=== PATIENT | male | born 1975 | race Caucasian/White ===

== ENCOUNTER 2024-06-01 14:58 | Emergency (ER) | payer BC, SELFPAY ==
[2024-06-01 15:13] VITALS: BP 158/94; PULSE 69; RESP 18; TEMP 36.9; O2SAT 99; BMI 19.2
--- NOTE | 2024-06-01 15:19 | CT_ITS ---
FINAL REPORT TECHNIQUE: Noncontrast exam This study was performed with techniques to keep radiation doses as low as reasonably achievable, (ALARA). Individualized dose reduction techniques using automated exposure control or adjustment of mA and/or kV according to the patient's size were employed. CLINICAL HISTORY: intermittent left sided numbness/weakness/soa COMPARISON: None FINDINGS: CT HEAD: No abnormal density is seen. Ventricles are normal. There is no hemorrhage. No mass effect is seen. Bone windows show no evidence of fracture. IMPRESSION: No acute findings. Would consider MRI follow-up if symptoms persist. Reviewed, Interpreted and Dictated by Avani Moncada MD Transcribed by Lashae Martinez Authenticated and [facility]
--- NOTE | 2024-06-01 15:19 | CT_ITS ---
FINAL REPORT TECHNIQUE: Thin section axial CT with contrast with multiplanar reconstruction. This study was performed with techniques to keep radiation doses as low as reasonably achievable, (ALARA). Individualized dose reduction techniques using automated exposure control or adjustment of mA and/or kV according to the patient''s size were employed. CLINICAL HISTORY: intermittent left sided numbness/weakness/shortness of breath COMPARISON: None FINDINGS: Pulmonary vessels enhance in normal fashion without evidence of embolism. Thoracic aorta shows no dissection or aneurysm. No pulmonary mass or infiltrate is present. There is no significant pleural effusion. There is no significant pericardial effusion. No mediastinal or hilar adenopathy is present. IMPRESSION: No evidence of pulmonary embolism Reviewed, Interpreted and Dictated by Avani Moncada MD Transcribed by Tigist Rico Authenticated and [facility]
--- NOTE | 2024-06-01 15:19 | CT_ITS ---
FINAL REPORT CLINICAL HISTORY: intermittent left sided numbness/weakness/soa COMPARISON: None FINDINGS: CT NECK ANGIO, WITHOUT AND WITH CONTRAST TECHNIQUE: Thin section axial CT with contrast with multiplanar 3D MIP reconstruction. This study was performed with techniques to keep radiation doses as low as reasonably achievable, (ALARA). Individualized dose reduction techniques using automated exposure control or adjustment of mA and/or kV according to the patient's size were employed. NASCET criteria and technique was utilized during interpretation. FINDINGS: Aortic arch: Arch shows no significant narrowing. Great vessel origins are widely patent. Right carotid: There is minimal soft plaque present at the right carotid bifurcation without significant stenosis. Left carotid: There is minimal soft plaque present at the left carotid bifurcation without significant stenosis. Vertebrals: Left vertebral artery is dominant. No significant stenosis is present. Note is made of a mild asymmetrically enlarged right lobe of the thyroid lobe compared to the left. IMPRESSION: No significant stenosis of the cervical carotid arteries Mild asymmetric enlargement of the right thyroid lobe compared with the left. This study was performed using automated techniques to achieve radiation exposure as low as reasonably Reviewed, Interpreted and Dictated by Avani Moncada MD Transcribed by Lashae Martinez Authenticated and [facility]
--- NOTE | 2024-06-01 15:19 | CT_ITS ---
FINAL REPORT CLINICAL HISTORY: intermittent left sided numbness/weakness/soa COMPARISON: None FINDINGS: CTA HEAD TECHNIQUE: Thin section axial CT with contrast with 3D MIP reconstruction This study was performed with techniques to keep radiation doses as low as reasonably achievable, (ALARA). Individualized dose reduction techniques using automated exposure control or adjustment of mA and/or kV according to the patient's size were employed. FINDINGS: No aneurysm is seen. Major intracranial vessels are patent without significant stenosis. . IMPRESSION: Unremarkable This study was performed using automated techniques to achieve radiation exposure as low as reasonably achievable Reviewed, Interpreted and Dictated by Avani Moncada MD Transcribed by Lashae Martinez Authenticated and [facility]
[2024-06-01] MEDS: LACTATED RINGERS 1000ML 1,000 ML 999 ML IV (15:28)
[2024-06-01 15:31] VITALS: BP 125/74; PULSE 58; O2SAT 99
--- NOTE | 2024-06-01 15:32 | ECG_ITS ---
APPROVED REPORT Exam: Resting ECG HR:57 bpm ECG Measurements Heart Rate 57 AXES CA 142 P 73 QRSd 91 QRS 53 QT 401 T 69 QTc 394 Conclusion SINUS BRADYCARDIA BORDERLINE ECG No STEMI Electronically signed by : CORIE BOSE, 06/03/2024 03:22:35
[2024-06-01 15:33] LABS: Alanine Aminotransferase 39 U/L (12-78); Albumin Level 4.5 g/dl (3.5-5.0); Albumin/Globulin Ratio 1.4 (1.1-1.8); Alkaline Phosphatase 90 U/L (38-126); Anion Gap 12.4 mEq/L (5-15); Aspartate Amino Transferase 36 U/L (17-59); Bilirubin,Total 1.1 mg/dl (0.2-1.3); Blood Urea Nitrogen 23 mg/dl (9-20); Carbon Dioxide 27 mmol/L (22.0-30.0); Chloride 104 mmol/L (98-107); Creatinine Clearance Estimated 105 mL/min (50-200); Estimated Glomerular Filt Rate 104 ml/min (>60); GFR (African American) 126 ML/MIN (>60); Globulin 3.2 g/dL (1.3-3.2); Glucose 151 mg/dl (74-100); Potassium 4.4 mmoL/L (3.5-5.1); Sodium 139 mmol/L (136-145); Total Protein,Serum 7.7 g/dl (6.3-8.2)
--- NOTE | 2024-06-01 15:33 | ED_ITS ---
Discharge Plan Disposition Patient Disposition: Home, Self-Care Prescriptions Prescriptions: No Action No Known Home Medications Referrals Follow up/Referrals: Mamadou Crawley DO [Staff Physician] - See instructions Provider,Referral, [Primary Care Provider] - See instructions Activity Restrictions/Add. Instructions Additional Instructions/Restrictions: No evidence of an acute cardiopulmonary or neurologic emergency noted today. I do recommend that you follow-up with your primary care doctor. Return with any significant worsening of your symptoms. Clinical Impressions Clinical Impression: Paresthesias, Dyspnea Print Language Print Language: Thai Discharge ED Provider: Nathaniel Bertrand General Adult HPI General Chief complaint: Shortness of Breath/Dyspnea Stated complaint: diff getting oxygen, left side numbness Time Seen by Provider: 06/01/24 15:12 Mode of Arrival: Ambulatory Source of Information: Patient Description of Symptoms (Recalled from ER Triage Doc. by RN): c/o numbness and tingling down left hand and foot and lips with feeling like he cant get in enough air when breathing for 9 days. PT reports that yesterday these symptoms went away just to return this morning. History of Present Illness HPI narrative: Patient is a 48-year-old male presenting today with multiple complaints. States that 9 days ago he had sudden onset of left-sided face arm and leg tingling and weakness which lasted a very short period of time about an hour and a half. He also had associated with nausea and vomiting and shortness of breath since that time. Today he is here for his shortness of breath mainly. His neurologic complaints other than some intermittent tingling in his hand has gone away. States that he feels like he just cannot get enough oxygen. However he states that he has improvement in his symptoms when he exerts himself and only feels this way when he is lying down. Has no cardio or pulmonary history in the past however he has not seen a doctor in 20 years. Related Data Home Medications ?Medication ?Instructions ?Recorded ?Confirmed No Known Home Medications 06/01/24 06/01/24 Allergies Allergy/AdvReac Type Severity Reaction Status Date / Time No Known Allergies Allergy Verified 06/01/24 15:26 [facility] Disclaimer: The information contained in this section may have been updated after the patient was seen, as this information can be updated by other users. Social History Smoking Status: Former smoker alcohol intake: never current occupational status: other Travel in the last 8 weeks: None ROS Obtained: Yes All systems reviewed & no additional complaints except as documented Physical Exam General General appearance: alert and in no apparent distress Respiratory Respiratory exam: Present normal lung sounds bilaterally and other (Oxygen saturation is 99% on room air with a good waveform); Absent respiratory distress Cardiovascular Cardiovascular exam: Present regular rate and normal rhythm Abdominal Exam Abdominal exam: Present soft; Absent distention or tenderness Neurological Exam Neurological exam: Present alert and oriented X3 Medical Decision Making Medical Records Screening: Per USPSTF and CDC recommendations, given the prevalence of disease in our region, it is our hospital?s policy to screen for HIV and viral Hepatitis for all patients aged 18 and over and those with ongoing risk factors. Syed Inquiry Pt receiving controlled substance: No Vital Signs: 06/01/24 15:13 06/01/24 15:31 Temperature 98.4 F Temperature Source Oral Pulse Rate 58 L Pulse Rate [Left Radial] 69 Respiratory Rate 18 Blood Pressure 125/74 Blood Pressure [Right Arm] 158/94 H Blood Pressure Mean [Right Arm] 115 Blood Pressure Position [Right Arm] Sitting 02 Sat by Pulse Oximetry 99 99 Oxygen Delivery Method Room Air Room Air Lab Data Lab results reviewed: Yes I reviewed the patient's lab results. Lab Results 06/01/24 15:10: WBC 7.0, RBC 5.81, Hgb 18.1 H, Hct 49.4, MCV 85.0, MCH 31.2, M CHC 36.6 H, RDW 11.8, Plt Count 192, MPV 10.1, Neut % (Auto) 67.9, Lymph % (Auto) 24.0, Riley % (Auto) 7.4, Eos % (Auto) 0.3, Baso % (Auto) 0.3, Neut # (Auto) 4.7, Lymph # (Auto) 1.7, Riley # (Auto) 0.5, Eos # (Auto) 0.0, Baso # (Auto) 0.0, D-Dimer 0.36, Sodium 139, Potassium 4.4, Chloride 104, Carbon Dioxide 27, Anion Gap 12.4, BUN 23 H, Creatinine 0.80, Estimated Creat Clear 105, Estimated GFR 104, Est GFR ( Amer) 126, Glucose 151 H, Calcium 10.0, Total Bilirubin 1.1, AST 36, ALT 39, Alkaline Phosphatase 90, Troponin I 0.02, NT-Pro-B Natriuret Pep < 20.0, Total Protein 7.7, Albumin 4.5, Globulin 3.2, Albumin/Globulin Ratio 1.4 06/01/24 15:10 06/01/24 15:10 Orders (Tests/Meds): ED MEDICATIONS Discontinued Medications Generic Name Dose Route Start Last Admin Trade Name Freq PRN Reason Stop Dose Admin Lactated Ringer's 1,000 mls @ 999 mls/hr 06/01/24 15:30 06/01/24 15:28 Lactated Ringer's 1000 Ml Bag IV 06/01/24 16:30 999 mls/hr .Q1H1M OLIMPIA Administration Iopamidol 160 ml 06/01/24 15:53 06/01/24 15:54 Iopamidol-370 (76%);100ml Bottle IV 06/01/24 15:54 160 ml ONCE ONE Administration Sodium Chloride 50 ml 06/01/24 15:53 06/01/24 15:54 0.9 % Sodium Chloride 50 Ml Vial IV 06/01/24 15:54 50 ml ONCE ONE Administration Sodium Chloride 10 ml 06/01/24 15:53 06/01/24 15:54 Sodium Chloride 0.9% 10ml Syr (Rad Only) IV 06/01/24 15:54 10 ml ONCE ONE Administration ORDERS Category Date Time Status CT angio chest PE protocol Stat Cat Scan 06/01/24 15:[address] angio head Stat Cat Scan 06/01/24 15:[address] angio neck Stat Cat Scan 06/01/24 15:[address] head/brain wo con Stat Cat Scan 06/01/24 15:19 Completed BNP [NT Pro Brain Natriuretic Pep.] Stat Lab 06/01/24 15:10 Completed CBC w/Auto Diff [Complete Blood Count Auto Diff] Stat Lab 06/01/24 15:10 Completed CMP [Comprehensive Metabolic Panel] Stat Lab 06/01/24 15:10 Completed D-Dimer Stat Lab 06/01/24 15:10 Completed Trop I [Troponin I] Stat Lab 06/01/24 15:10 Completed Troponin I Q3H Lab 06/01/24 18:30 Ordered Troponin I Q3H Lab 06/01/24 21:30 Ordered ECG Data Tracing #1: I reviewed this ECG and interpreted as documented below: Ventricular rate of 57 sinus bradycardia no acute ischemic changes noted normal axis no significant conduction abnormalities Medical Decision Narrative: 48-year-old well-appearing gentleman with normal vital signs including normal respiratory effort oxygen saturations normal lung exam normal cardiovascular exam as well. Differential includes TIA versus stroke versus aortic dissection pneumonia pulmonary embolism etc. Overall he is very well-appearing is nonspecific and atypical symptoms. Will obtain a CT scan of his head and CT angiography of his head and neck as well as a CT PE. EKG is unremarkable. I will reassess after this initial workup is complete. CT scan of the patient's head and CT angiography of the head and neck as well as CT PE were performed which I personally interpreted which show no evidence of acute pathology. Radiology reads are consistent with this as well. Serial assessments from a cardiopulmonary and neurologic standpoint are still normal. Overall patient has subjective symptoms which have not yielded definitive diagnosis either from a physical exam or from lab or radiology perspective. There remain some diagnostic uncertainty at this point I do not suspect this patient has had a TIA or stroke or cardiopulmonary emergency at this point. No definitive specialty referral warranted but I did recommend he follow-up with primary care doctor for further evaluation particular for symptoms return and he also may return to the emergency department if things worsen. Patient was understanding reassured that no emergent or life-threatening condition was going on at this moment understood return precautions and the diagnostic uncertainty was discharged in stable condition. Critical Care Critical Care Time Critical Care Time: No
[2024-06-01 15:38] LABS: D-Dimer 0.36 ug/mL (0.0-0.5)
[2024-06-01 15:42] LABS: NT Pro Brain Natriuretic Pep. < 20.0 pg/mL (0-125)
[2024-06-01 15:44] LABS: Basophils % 0.3 % (0.1-2.0); Eosinophils % 0.3 % (0.1-12.0); Hematocrit 49.4 % (42.0-52.0); Lymphocytes # 1.7 K/mm3 (0.7-4.5); Mean Corpuscular HGB Conc 36.6 g/dL (31.8-35.4); Mean Corpuscular Hemoglobin 31.2 pg (27.0-31.2); Mean Platelet Volume 10.1 fl (7.4-10.4); Monocytes # 0.5 K/mm3 (0.1-1.0); Monocytes % 7.4 % (1.7-9.3); Neutrophils # 4.7 K/mm3 (1.8-7.8); Neutrophils % 67.9 % (37.0-80.0); Platelet Count 192 K/mm3 (142-424); Red Blood Count 5.81 M/mm3 (4.60-6.20); Red Cell Distribution Width 11.8 % (11.5-17.5)
[2024-06-01 15:45] LABS: Troponin I 0.02 ng/ml (0.00-0.034)
[2024-06-01 15:50] LABS: Hemoglobin 18.1 g/dL (14.1-18.0)
[2024-06-01] MEDS: 0.9 % SODIUM CHLORIDE 50 ML VIAL IV (15:54)
[2024-06-01] MEDS: SODIUM CHLORIDE 0.9% 10ML SYR (RAD ONLY) 10 ML IV (15:54)
[2024-06-01] MEDS: IOPAMIDOL-370 (76%);100ML BOTTLE 160 ML IV (15:54)
[2024-06-01 16:53] VITALS: BP 125/74; PULSE 60; RESP 16; TEMP 36.8; O2SAT 99
== END 2024-06-01 17:08 | disposition home or self-care (01) ==
PROVIDERS: Emergency Provider Student in an Organized Health Care Education/Training Program
DX: R06.00 Dyspnea, unspecified (principal); R20.2 Paresthesia of skin; R06.02 Shortness of breath; R11.2 Nausea with vomiting, unspecified
CPT/HCPCS: 70450; 70496; 70498; 71275; 80053; 83880; 84484; 85025; 85378; 93005; 96360; 99285; J7120; Q9967

== ENCOUNTER 2024-06-14 10:33 | Outpatient (CLI) | payer BC, SELFPAY ==
[2024-06-14 13:24] LABS: Microscopic, Urine URINE MICROSCOPIC (MICROSCOPIC)
[2024-06-14 13:35] LABS: Basophils % 0.4 % (0.1-2.0); Monocytes # 0.4 K/mm3 (0.1-1.0); Monocytes % 6.7 % (1.7-9.3); Nucleated Red Blood Cells # 0 10^3/uL; Nucleated Red Blood Cells % 0 %; Red Blood Count 5.85 M/mm3 (4.60-6.20); Red Cell Distribution Width 11.7 % (11.5-17.5)
[2024-06-14 13:43] LABS: Appearance,Urine CLEAR (Clear); Bilirubin,Urine Negative (Negative); Blood, Urine Negative (Negative); Color,Urine YELLOW (Yellow); Glucose,Urine (UA) Negative (Negative); Ketones,Urine Negative (Negative); Leukocyte Esterase,Urine Negative (Negative); Nitrate,Urine Negative (Negative); PH,Urine 5.5 (5.0-8.5); Protein,Urine Negative (Negative); Specific Gravity, Urine 1.025 (1.005-1.030); Urobilinogen,Urine 0.2 EU/dl (0.2)
[2024-06-14 13:55] LABS: Eosinophils % 0.4 % (0.1-12.0); Hematocrit 49.8 % (42.0-52.0); Hemoglobin 18.2 g/dL (14.1-18.0); Lymphocytes # 1.1 K/mm3 (0.7-4.5); Lymphocytes % 20.4 % (10-50); Mean Corpuscular HGB Conc 36.5 g/dL (31.8-35.4); Mean Corpuscular Hemoglobin 31.1 pg (27.0-31.2); Mean Corpuscular Volume 85.1 fl (80-94); Mean Platelet Volume 10.7 fl (7.4-10.4); Neutrophils # 3.9 K/mm3 (1.8-7.8); Neutrophils % 71.7 % (37.0-80.0); Platelet Count 187 K/mm3 (142-424); Red Cell Distribution Width-SD 35.6 fL; White Blood Count 5.4 K/mm3 (4.8-10.8)
[2024-06-14 14:15] LABS: Alanine Aminotransferase 25 U/L (12-78); Albumin Level 4.3 g/dl (3.5-5.0); Albumin/Globulin Ratio 1.5 (1.1-1.8); Alkaline Phosphatase 87 U/L (38-126); Anion Gap 14.7 mEq/L (5-15); Aspartate Amino Transferase 27 U/L (17-59); Bilirubin,Total 1.2 mg/dl (0.2-1.3); Blood Urea Nitrogen 15 mg/dl (9-20); Calcium 9.4 mg/dl (8.4-10.2); Carbon Dioxide 28 mmol/L (22.0-30.0); Chloride 100 mmol/L (98-107); Chol/HDL Ratio 5.4 (1-3.5); Cholesterol 172 mg/dl (140-200); Estimated Glomerular Filt Rate 91 ml/min (>60); GFR (African American) 110 ML/MIN (>60); Globulin 2.9 g/dL (1.3-3.2); Glucose 234 mg/dl (74-100); HDL Cholesterol 32 mg/dl (40-60); Magnesium 2.1 mg/dl (1.6-2.3); Phosphorous 2.4 mg/dl (2.5-4.5); Potassium 4.7 mmoL/L (3.5-5.1); Sodium 138 mmol/L (136-145); Total Protein,Serum 7.2 g/dl (6.3-8.2); Triglycerides 147 mg/dl (30-150); VLDL Cholesterol 29 mg/dL (0-40)
[2024-06-14 14:23] LABS: Erythrocyte Sedimentation Rate 1 mm/hr (0-15)
[2024-06-14 14:26] LABS: C-Reactive Protein 0.6 mg/L (0-4); Direct LDL Cholesterol 108.97 mg/dL (100-129); Intact Parathyroid Hormone 52.5 pg/mL (7.5-53.5)
[2024-06-14 14:33] LABS: 25-OH Vitamin D, Total 36.3 ng/mL (30-100)
[2024-06-14 14:44] LABS: Prostate Specific Ag Screen 1.9 ng/ml (0.0-4.0); Thyroid Stimulating Hormone 1.31 uIU/mL (0.465-4.68)
[2024-06-14 14:47] LABS: Squamous Epithelial Cell,Urine Occasional #/hpf (0-5)
[2024-06-14 14:56] LABS: HIV Combo NEGATIVE (Negative)
[2024-06-14 15:03] LABS: Free T4 (Free Thyroxine) 1.35 ng/dl (0.78-2.19)
[2024-06-14 15:04] LABS: Vitamin B12 612 pg/mL (239-931)
[2024-06-14 15:10] LABS: Iron 184 ug/dL (49-181); Total Iron Binding Capacity 297 ug/dL (261-462)
[2024-06-14 15:30] LABS: Hepatitis C Ab Qual. W/ RFX NEGATIVE (Negative)
[2024-06-14 15:46] LABS: Ferritin 396 ng/ml (17.9-464)
[2024-06-14 18:19] LABS: Chlamydia trachomatis Negative (Negative); Neisseria gonorrhoeae Negative (Negative); Trichomonas vaginalis Negative (Negative)
[2024-06-14 23:40] LABS: RPR W/RFX Titers Nonreactive (Nonreactive)
[2024-06-15 08:41] LABS: Thyroid Peroxidase Antibodies 10 IU/mL (0-34)
[2024-06-15 15:11] LABS: Calcium, Ionized 5.1 mg/dL (4.5-5.6)
== END 2024-06-14 23:59 | disposition home or self-care (01) ==
LOC: LAB.DROPOF 06-15 09:09
PROVIDERS: PCP Nurse Practitioner Family; Visit Provider Nurse Practitioner Family
DX: R06.02 Shortness of breath (principal); R20.2 Paresthesia of skin; Z76.89 Persons encountering health services in other specified circumstances; Z11.59 Encounter for screening for other viral diseases; Z11.4 Encounter for screening for human immunodeficiency virus [HIV]; Z11.3 Encounter for screening for infections with a predominantly sexual mode of transmission; Z13.220 Encounter for screening for lipoid disorders; R94.6 Abnormal results of thyroid function studies; R53.83 Other fatigue; Z87.891 Personal history of nicotine dependence; H53.8 Other visual disturbances; Z83.3 Family history of diabetes mellitus; Z80.42 Family history of malignant neoplasm of prostate; R01.1 Cardiac murmur, unspecified; E11.9 Type 2 diabetes mellitus without complications; I10 Essential (primary) hypertension; G47.33 Obstructive sleep apnea (adult) (pediatric); R41.3 Other amnesia
CPT/HCPCS: 80053; 80061; 81001; 82306; 82330; 82607; 82728; 83036; 83540; 83550; 83735; 83970; 84100; 84439; 84443; 85025; 85651; 86140; 86376; 86592; 86803; 87086; 87389; 87491; 87591; 87661; G0103

== ENCOUNTER 2024-06-26 07:37 | Outpatient (CLI) | payer BC, SELFPAY ==
--- NOTE | 2024-06-26 | CA_ITS ---
APPROVED REPORT EXAM: Comprehensive 2D, Doppler, and color-flow Echocardiogram Chemist Assistant: Lima Menard CRT Ht: 6 ft 0 in Wt: 150lbs BSA: 1.88 BP: 117/79 mmHg Indications: Chest Pain, Murmur, Shortness of Breath, Dyspnea, Fatigue 2D Dimensions LA Volume 13.40 mL LA Volume Index 6.90 mL/m2 (M/F) 16-34 M-Mode Dimensions RVDd 2.20 cm (0.9-2.6) LA Diam 2.69 cm (1.9-4.0) LVDd 4.49 cm (3.5-5.7) LVDs 2.84 cm (3.5-5.7) IVSd 1.07 cm (0.6-1.1) PWd 0.96 cm (0.6-1.1) EF (Teich) 66.70% FS 36.70% EDV (Teich) 92.00 mL TAPSE 2.42 (<1.7) ESV (Teich) 30.60 mL LV Diastology E Decel Time 180 (160-240 msec) E/A Ratio 1.95 MED A' 7.80 cm/s Aortic Valve AO Peak GR. 4.10 mmHg Mitral Valve MV A Velocity 42.0 (40-130 cm/s) E/A Ratio 1.95 Pulmonary Valve PV Peak Velocity 90.0 (50-150 cm/s) Tricuspid Valve TR P. Velocity 110.00 cm/s RAP Estimate 10.00 mmHg RVSP 14.80 mmHg Left Ventricle The left ventricle is normal size. The left ventricular systolic function is normal. The left ventricular ejection fraction is within the normal range. There is increased LV wall thickness. There is normal LV segmental wall motion. The left ventricular diastolic function is normal. LVEF is 55%. Right Ventricle The right ventricle is normal size. The right ventricular systolic function is normal. Atria The left atrium size is normal. The right atrium size is normal. There is no Doppler evidence of interatrial shunt. Aortic Valve The aortic valve opens well. There is no aortic valvular stenosis. No aortic regurgitation is present. Mitral Valve The mitral valve is normal in structure. No evidence of mitral valve stenosis. Trace mitral regurgitation. Tricuspid Valve Tricuspid valve is grossly normal in structure and function. Trace tricuspid regurgitation. There is insufficient TR jet to estimate RVSP. Pulmonic Valve The pulmonary valve is normal in structure. Trace pulmonic regurgitation. Great Vessels The aortic root is normal in size. IVC is normal in size and collapses >50% with inspiration. Pericardium There is no pericardial effusion. Other Information Study Quality: Fair Conclusion Normal biventricular systolic function. No significant valvular stenosis or regurgitation. Electronically signed by : Arleth Drake MD 07/02/2024 14:58:31
[2024-06-26 08:25] VITALS: PULSE 55; PULSE 58
[2024-06-26] MEDS: ALBUTEROL 0.083% 2.5 MG/3 ML NEB IH (08:25)
--- NOTE | 2024-06-26 09:15 | US_ITS ---
FINAL REPORT CLINICAL HISTORY: abnormal thyroid exam COMPARISON: CT soft tissues of the neck 06/01/2024 FINDINGS: THYROID ULTRASOUND: The right lobe of the thyroid measures 5.3 x 1.9 x 1.6 cm in size. No focal mass or nodule is identified. The left lobe of the thyroid measures 4.9 x 1.7 x 1.6 cm in size. No focal mass or nodule is identified. The isthmus of the thyroid measures 2 mm in thickness. IMPRESSION: The right lobe of the thyroid is slightly larger than the left, however no focal nodule or mass is identified. Reviewed, Interpreted and Dictated by Angel Mike MD Transcribed by Lashae Martinez Authenticated and [facility]
== END 2024-06-26 23:59 | disposition home or self-care (01) ==
LOC: RT 07:38
PROVIDERS: PCP Nurse Practitioner Family; Visit Provider Nurse Practitioner Family
DX: R06.00 Dyspnea, unspecified (principal); R94.6 Abnormal results of thyroid function studies; Z87.891 Personal history of nicotine dependence; R01.1 Cardiac murmur, unspecified
CPT/HCPCS: 76536; 93306; 94060; 94640; J7613

== ENCOUNTER 2024-07-11 10:03 | Outpatient (CLI) | payer BC, SELFPAY ==
--- NOTE | 2024-07-11 10:30 | CA_ITS ---
APPROVED REPORT Exam: Exercise Treadmill Technologist: Ly Myrick Ht: 6 ft 0 in Wt: 150 lbs BSA: 1.88 m2 HR: 56 bpm BP: 126/75 mmHg Stress Test Details Test: Exercise stress testing was performed using a Mushtaq protocol. HR Resting HR: 56 bpm Max Heart Rate (APMHR): 173 bpm Max HR Achieved: 150 bpm Target HR (85% APMHR): 147 bpm % of APMHR: 87 Recovery HR: 83 bpm HR response to stress: Normal HR response to stress BP Resting BP: 126.0/75.0 mmHg Max BP: 175.0/90.0 mmHg Recovery BP: 123.0/79.0 mmHg BP response to stress: Normal blood pressure response to stress. ECG Clinical Exercise duration: 9.18 min Exercise capacity: 10.6. METs Stress ECG Conclusion Symptoms: Dyspnea, leg fatigue Arrhythmias/Ectopy: None ST-T Changes: [address] horizontal depression Conclusion: Average exercise capacity. Equivocal ECG changes at peak stress. EKG resonse to exercise. Further evaluation for ischemia with an imaging modality is suggested. Electronically signed by : Arleth Drake MD 07/12/2024 23:56:15
== END 2024-07-11 23:59 | disposition home or self-care (01) ==
LOC: RT 10:04
PROVIDERS: PCP Nurse Practitioner Family; Visit Provider Physician Assistant
DX: R07.9 Chest pain, unspecified (principal); R06.02 Shortness of breath; Z82.49 Family history of ischemic heart disease and other diseases of the circulatory system; Z87.891 Personal history of nicotine dependence
CPT/HCPCS: 93017; 93018

== ENCOUNTER 2024-08-07 11:03 | Outpatient (CLI) | payer BC, SELFPAY ==
[2024-08-07 12:13] LABS: Alanine Aminotransferase 25 U/L (12-78); Albumin Level 4.3 g/dl (3.5-5.0); Albumin/Globulin Ratio 1.8 (1.1-1.8); Alkaline Phosphatase 72 U/L (38-126); Anion Gap 10.1 mEq/L (5-15); Aspartate Amino Transferase 30 U/L (17-59); Bilirubin,Total 1.2 mg/dl (0.2-1.3); Blood Urea Nitrogen 16 mg/dl (9-20); Calcium 9.2 mg/dl (8.4-10.2); Carbon Dioxide 29 mmol/L (22.0-30.0); Chloride 104 mmol/L (98-107); Estimated Glomerular Filt Rate 121 ml/min (>60); GFR (African American) 146 ML/MIN (>60); Globulin 2.4 g/dL (1.3-3.2); Glucose 159 mg/dl (74-100); Potassium 4.1 mmoL/L (3.5-5.1); Sodium 139 mmol/L (136-145); Total Protein,Serum 6.7 g/dl (6.3-8.2)
[2024-08-07 13:00] LABS: Iron 107 ug/dL (49-181)
[2024-08-07 13:10] LABS: Total Iron Binding Capacity 252 ug/dL (261-462)
[2024-08-07 13:37] LABS: Ferritin 367 ng/ml (17.9-464)
== END 2024-08-07 23:59 | disposition home or self-care (01) ==
LOC: LAB 11:04
PROVIDERS: PCP Nurse Practitioner Family; Visit Provider Nurse Practitioner Family
DX: E83.19 Other disorders of iron metabolism (principal)
CPT/HCPCS: 36415; 80053; 81256; 82728; 83540; 83550